=== PATIENT | male | born 1950 | race African-American/Black ===

== ENCOUNTER 2018-05-01 05:45 | Emergency (ER) | payer MEDICARE, OTHER ==
[~2018-05-01] VITALS: Ht 182.9 cm; Wt 79.6 kg
[2018-05-01] MEDS ORDERED: IBUPROFEN 600MG TABLET PO ONE (08:15)
[2018-05-01] MEDS ORDERED: ACETAMINOPHEN 500MG TABLET PO ONE (08:15)
[2018-05-01 09:11] VITALS: BP 159/106
== END 2018-05-01 09:27 | disposition home or self-care (01) ==
LOC: ER 05:45
DX: M25.532 Pain in left wrist (principal); M19.90 Unspecified osteoarthritis, unspecified site; F17.200 Nicotine dependence, unspecified, uncomplicated; F14.10 Cocaine abuse, uncomplicated
CPT/HCPCS: 29125; 73110; 99283